=== PATIENT | female | born 1945 | race Caucasian/White ===

== ENCOUNTER → 2020-05-10 13:27 | Outpatient (CLI) | payer MEDICARE, SELFPAY ==
--- NOTE | ~2020-05-10 | XR_ITS ---
EXAMINATION: XR lumbar spine 2-3V EXAM DATE: 05/10/2020 13:47 INDICATION: Right-sided low back pain for 2 years. TECHNIQUE: Lumber spine frontal, lateral, lateral L5-S1 projections for interpretation. There is no prior study for comparison. FINDINGS: There is mild to moderate lumbar dextroscoliosis. Bones appear osteopenic. Probably modera te disc disease L5-S1 and mild to moderate at the other lumbar levels. Sacrum, sacroiliac joints, sac ral arcuate lines are intact. There is aortic arteriosclerosis. There is mild to moderate lumbar face t arthropathy. Paraspinal soft tissue is unremarkable. There are no osteoblastic or osteolytic lesion s identified. IMPRESSION: 1. Mild to moderate thoracic dextroscoliosis and spondylosis. Reviewed, dictated and finalized at location A.
== END ==
PROVIDERS: PCP Family Medicine; Visit Provider Family Medicine
DX: M54.5 Low back pain (principal); M47.814 Spondylosis without myelopathy or radiculopathy, thoracic region; M41.9 Scoliosis, unspecified
CPT/HCPCS: 72100

== ENCOUNTER → 2020-06-17 13:15 | Outpatient (CLI) | payer MEDICARE, SELFPAY ==
--- NOTE | ~2020-06-17 | MM_ITS ---
EXAMINATION: MM screening alpesh BI w martir HISTORY: Screening mammogram TECHNIQUE: Craniocaudal and mediolateral oblique 3-D tomosynthesis images were obtained and synthetic 2-D images were generated. CAD analysis was submitted and interpreted. COMPARISON: 03/31/2019, 03/01/2017 bilateral digital screening mammogram examinations BREAST PARENCHYMAL COMPOSITION: The breasts are heterogeneously dense, which may obscure small masses . FINDINGS: Stable probable 12 x 20 mm lipoma of upper outer left breast. There is no evidence of suspi cious mass, calcification, or architectural distortion to suggest malignancy in either breast. There has been no suspicious interval change. IMPRESSION: 1. No mammographic evidence of malignancy. 2. Recommend routine screening mammography in one year. BI-RADS Category 2: Benign finding(s). Reviewed, dictated and finalized at location A.
== END ==
PROVIDERS: PCP Family Medicine; Visit Provider Family Medicine
DX: Z12.31 Encounter for screening mammogram for malignant neoplasm of breast (principal)
CPT/HCPCS: 77063; 77067

== ENCOUNTER 2020-11-01 13:22 | Outpatient (CLI) | payer MEDICARE, OTHER, SELFPAY ==
--- NOTE | ~2020-11-01 | XR_ITS ---
EXAMINATION: XR ribs LT 2V w CXR 2V INDICATION: Contusion of the left anterior wall of the thorax, initial encounter TECHNIQUE: PA and lateral views of the chest and 3 views of the left ribs were obtained. COMPARISON: None. FINDINGS: There is symmetric scarring in the lung apices. The lungs are free of acute opacities. The cardiomediastinal silhouette is normal. There is no pleural effusion or pneumothorax. Moderate thorac ic spondylosis is noted. The bones are osteopenic which limits sensitivity for fracture. There is a q uestionable nondisplaced fracture at the anterolateral aspect of the left seventh rib.. IMPRESSION: 1. Possible nondisplaced left seventh rib fracture. 2. No acute cardiopulmonary abnormality. Reviewed, dictated and finalized at location A. ID SUPERINTENDENT
== END 2020-11-01 13:23 | disposition home or self-care (01) ==
PROVIDERS: PCP Family Medicine; Visit Provider Nurse Practitioner Family
DX: R07.81 Pleurodynia (principal); S20.212A Contusion of left front wall of thorax, initial encounter; X58.XXXA Exposure to other specified factors, initial encounter
CPT/HCPCS: 71046; 71100

== ENCOUNTER 2021-06-03 16:07 | Outpatient (CLI) | payer MEDICARE, SELFPAY ==
--- NOTE | ~2021-06-03 | CT_ITS ---
EXAMINATION:CT lung screening DATE: 06/03/2021 16:34 INDICATION: Personal history of tobacco dependence. 45 pack year history. TECHNIQUE: Computed tomography (CT) of the chest was performed without intravenous contrast. Automate d exposure control and iterative reconstruction technique were employed. The dose-length product (DLP ) was 60.29 mGy-cm. COMPARISON: None. FINDINGS: There is mild emphysema. There is mild scarring at the lung apices. There is a 5 mm nodule at right major fissure. No pleural effusion. The heart size is normal. There are coronary artery calc ifications. No pericardial effusion. There is moderate thoracic spondylosis. There is mild chronic he ight loss of multiple vertebral bodies. IMPRESSION: 1. Lung-RADS category 2: Benign appearance or behavior. Continue annual screening with noncontrast lo w-dose chest CT in 12 months. Reviewed, dictated and finalized at location A. IMPRESSION: 1. Lung-RADS category 2: Benign appearance or behavior. Continue annual screeni ng with noncontrast low-dose chest CT in 12 months.
== END 2021-06-03 16:08 | disposition home or self-care (01) ==
LOC: ANHIMG 16:17
PROVIDERS: PCP Family Medicine; Visit Provider Family Medicine
DX: F17.210 Nicotine dependence, cigarettes, uncomplicated (principal)
CPT/HCPCS: 71271

== ENCOUNTER → 2021-09-03 01:50 | Outpatient (CLI) | payer MEDICARE, SELFPAY ==
[2021-09-03 13:56] LABS: Influenza Control Positive
[2021-09-03 22:40] LABS: SARS-CoV-2 RNA PCR Positive
== END ==
PROVIDERS: PCP Family Medicine; Visit Provider Physician Assistant
DX: R05.9 Cough, unspecified (principal); R68.89 Other general symptoms and signs; U07.1 COVID-19
CPT/HCPCS: 87804; C9803; U0003; U0005

== ENCOUNTER → 2021-11-02 12:26 | Outpatient (CLI) | payer MEDICARE, SELFPAY ==
--- NOTE | ~2021-11-02 | MM_ITS ---
EXAMINATION: MM screening alpesh BI w martir HISTORY: Screening TECHNIQUE: Craniocaudal and mediolateral oblique 3-D tomosynthesis images were obtained and synthetic 2-D images were generated. CAD analysis was submitted and interpreted. COMPARISON: Comparison to multiple prior studies sequentially, with oldest reviewed study dated 06/28. BREAST PARENCHYMAL COMPOSITION: The breasts are heterogeneously dense, which may obscure small masses . FINDINGS: There is no evidence of suspicious mass, calcification, or architectural distortion to sugg est malignancy in either breast. There has been no suspicious interval change. IMPRESSION: 1. No mammographic evidence of malignancy. 2. Recommend routine screening mammography in one year. BI-RADS Category 1: Negative Reviewed, dictated and finalized at location A. MAKER
== END ==
PROVIDERS: PCP Family Medicine; Visit Provider Family Medicine
DX: Z12.31 Encounter for screening mammogram for malignant neoplasm of breast (principal)
CPT/HCPCS: 77063; 77067

== ENCOUNTER → 2022-06-28 13:38 | Outpatient (CLI) | payer MEDICARE, OTHER, SELFPAY ==
--- NOTE | ~2022-06-28 | XR_ITS ---
XR shoulder RT min 2V DATE: 06/28/2022 13:53 INDICATION: Anterior shoulder pain for 2 months. No injury. TECHNIQUE: 4 views COMPARISON: None FINDINGS: There is diffuse osteopenia. No fracture or dislocation, periosteal reaction or bone destru ction. No abnormal soft tissue calcification of the right shoulder. Normal alignment at the acromiocl avicular and glenohumeral joints. IMPRESSION: Osteopenia; otherwise negative Reviewed, dictated and finalized at location A.
== END ==
PROVIDERS: PCP Family Medicine; Visit Provider Family Medicine
DX: M25.511 Pain in right shoulder (principal); M85.811 Other specified disorders of bone density and structure, right shoulder
CPT/HCPCS: 73030

== ENCOUNTER 2022-06-29 13:52 | Outpatient (CLI) | payer MEDICARE, SELFPAY ==
--- NOTE | ~2022-06-29 | CT_ITS ---
EXAMINATION: CT lung screening DATE: 06/29/2022 14:24 INDICATION: CT lung screening. Personal history of prior tobacco dependence. 40 pack-year history. Qu it smoking one year ago. TECHNIQUE: Computed tomography (CT) of the chest was performed without intravenous contrast. Automate d exposure control and iterative reconstruction technique were employed. Exam dose: 60.57 mGy-cm tot al exam DLP. COMPARISON: 06/03/2021 CT lung screening FINDINGS: Stable mild bilateral apical and basilar scarring since 06/03/2021. Mild emphysematous changes of the lungs. No pulmonary infiltrate or consolidation or pulmonary mass lesion. Thoracic aortic and great vessel and coronary artery calcifications. No hilar or mediastinal mass les ion or lymphadenopathy. Normal heart size. No pericardial or pleural effusion. History of the deep ve ins of the region of the chest. No suspicious osteolytic or osteoblastic lesions. IMPRESSION: Lung RADS category 2: Benign appearance. Continue annual screening noncontrast low-dose chest CT in 12 months Reviewed, dictated and finalized at Location A. Reviewed, dictated and finalized at location A.
== END 2022-06-29 13:53 | disposition home or self-care (01) ==
PROVIDERS: PCP Family Medicine; Visit Provider Family Medicine
DX: Z12.2 Encounter for screening for malignant neoplasm of respiratory organs (principal); Z87.891 Personal history of nicotine dependence
CPT/HCPCS: 71271

== ENCOUNTER 2023-01-10 15:10 | Outpatient (CLI) | payer MEDICARE, SELFPAY ==
--- NOTE | ~2023-01-10 | XR_ITS ---
XR knee RT min 4V 01/10/2023 15:32 Indication: Right knee pain Procedure: 4 views right knee Comparison: No prior studies for comparison. Findings: Mild osteoarthritis of the right knee. No fracture, subluxation or dislocation. No signific ant joint effusion. No foreign bodies. Osteopenia. Impression: 1: Mild osteoarthritis of the right knee. Reviewed, dictated and finalized at location B. Impression: 1: Mild osteoarthritis of the right knee.
== END 2023-01-10 15:11 | disposition home or self-care (01) ==
LOC: ANHIMG 15:13
PROVIDERS: PCP Family Medicine; Visit Provider Physician Assistant
DX: M17.11 Unilateral primary osteoarthritis, right knee (principal)
CPT/HCPCS: 73564

== ENCOUNTER 2023-02-07 14:24 | Outpatient (CLI) | payer MEDICARE, SELFPAY ==
--- NOTE | ~2023-02-07 | MR_ITS ---
EXAMINATION: MR knee RT wo con DATE: 02/08/2023 09:00 INDICATION: right knee trauma, negative xrays, r/o occult fx TECHNIQUE: Magnetic resonance imaging (MRI) of the right knee was performed without intravenous contr ast. Sequences included axial PD-weighted FS FSE, coronal PD-weighted FSE and PD-weighted FS FSE, sag ittal PD-weighted FSE, and sagittal T2-weighted FS FSE. COMPARISON: X-ray right knee 01/10/2023. FINDINGS: Medial compartment: Intact meniscus. Moderate diffuse cartilage thinning. Mild osteophytosis. Lateral compartment: Fraying of the meniscal apex. Moderate diffuse cartilage thinning. Mild osteophytosis. Patellofemoral compartment: Cartilage loss along the median ridge and medial facet. Undermining/shearing of cartilage on the late ral facet. Small subchondral cysts. Mild osteophytosis. Ligaments and tendons: Signal abnormality superficial and deep to the MCL tendon, with mild signal abnormality of the tendon proximally. The ACL, PCL, and LCL are intact. Remaining flexor and extensor tendons are intact. Fluid: No significant fluid collection. Osseous/other: Marrow edema in the tibial plateau. Linear low signal T1 abnormality extending across the marrow spac e of the tibial plateau, most notably in the medial tibial plateau, with associated edema signal. IMPRESSION: 1. Occult nondisplaced microtrabecular fracture of the tibial plateau, most evident within the medial plateau. 2. Mild partial thickness MCL tear. 3. Moderate tricompartmental osteoarthritis. Reviewed, dictated and finalized at location K. IMPRESSION: 1. Occult nondisplaced microtrabecular fracture of the tibial plateau, most irma dent within the medial plateau. 2. Mild partial thickness MCL tear. 3. Moderate tricompartmental osteoarthritis.
== END 2023-02-07 14:25 | disposition home or self-care (01) ==
LOC: ANHIMG 18:13
PROVIDERS: PCP Family Medicine; Visit Provider Physician Assistant
DX: S89.91XA Unspecified injury of right lower leg, initial encounter (principal); X58.XXXA Exposure to other specified factors, initial encounter; M17.11 Unilateral primary osteoarthritis, right knee
CPT/HCPCS: 73721

== ENCOUNTER 2024-01-31 13:55 | Outpatient (CLI) | payer MEDICARE, SELFPAY ==
--- NOTE | ~2024-01-31 | XR_ITS ---
XR shoulder RT min 2V Ordering provider: Ravin Guillen MD History: . M25.511 - Pain in right shoulder, chronic . Comparison: June 28, 2022 FINDINGS: BONES: No acute fracture or dislocation. JOINT SPACES: The acromioclavicular joint is normal. The glenohumeral joint is normal. inferior spurr ing seen in the humerus and glenoid suggestive of angina osteoarthritic changes. SOFT TISSUES: Normal. IMPRESSION: No acute osseous abnormality right shoulder. Reviewed, dictated and finalized at location A.
--- NOTE | ~2024-01-31 | XR_ITS ---
XR shoulder LT min 2V Ordering provider: Ravin Guillen MD History: . M25.511 - Pain in right shoulder, chronic . Comparison: None. FINDINGS: BONES: No acute fracture or dislocation. JOINT SPACES: The acromioclavicular joint is normal. The glenohumeral joint is normal. Mild osteoarth ritic changes seen with spurring seen in the humerus inferiorly. SOFT TISSUES: Normal. IMPRESSION: No acute osseous abnormality left shoulder. Consider MRI of the shoulder if there is concern for soft tissue internal derangement. Reviewed, dictated and finalized at location A. IMPRESSION: No acute osseous abnormality left shoulder. Consider MRI of the shoulder if there is concern for soft tissue internal deran tsering.
--- NOTE | ~2024-01-31 | CT_ITS ---
CT Scan of the Chest without Contrast: Clinical Indication: Lung cancer screening, nicotine dependence. Technique: Contiguous sections were acquired throughout the chest without intravenous contrast. Dose reduction technique was used on this scan by utilizing automated exposure control and iterative recon struction technique. The dose-length product (DLP) was 59.72 mGy-cm. Comparison: 06/29/2022 Findings: There is no evidence of any significant mediastinal, hilar or axillary lymphadenopathy. The mediastin al soft tissues appear normal. There is no evidence of pleural or pericardial effusion. Stable biapical scarring. The lungs are otherwise clear. No pulmonary nodules or infiltrates are not ed. Images through the upper abdomen reveal no abnormalities. Impression: Lung RADS 2: Benign appearance. 12 month follow-up screening CT advised. Reviewed, dictated and finalized at [facility]. Impression: Lung RADS 2: Benign appearance. 12 month follow-up screening CT advised.
--- NOTE | ~2024-01-31 | XR_ITS ---
3 VIEWS LUMBAR SPINE Ordering provider: Ravin Guillen MD History: . M54.50 - Low back pain, unspecified, chronic . Comparison: May 10, 2020 FINDINGS: VERTEBRAL BODIES:Dextroscoliosis. Degenerative spine. Destructive changes with loss of volume of L1 o n L2. . DISK SPACES: Narrowing of the disc T12-L1, L1-L2, L2-L3 and L5-S1. Multilevel facet joint disease. SOFT TISSUES: Normal. Sacroiliac joints are normal. IMPRESSION: Loss of volume of L1-L2 with possible destructive changes involving L2. MRI evaluation advised. Multilevel degenerative disc disease. Reviewed, dictated and finalized at location A. IMPRESSION: Loss of volume of L1-L2 with possible destructive changes involving L2. MRI cordelia luation advised. Multilevel degenerative disc disease.
== END 2024-01-31 13:56 | disposition home or self-care (01) ==
PROVIDERS: PCP Family Medicine; Visit Provider Family Medicine
DX: M25.512 Pain in left shoulder (principal); M25.511 Pain in right shoulder; G89.29 Other chronic pain; M54.50 Low back pain, unspecified; Z12.2 Encounter for screening for malignant neoplasm of respiratory organs; Z87.891 Personal history of nicotine dependence; M51.36 Other intervertebral disc degeneration, lumbar region
CPT/HCPCS: 71271; 72100; 73030

== ENCOUNTER 2024-02-25 11:01 | Outpatient (CLI) | payer MEDICARE, SELFPAY ==
--- NOTE | ~2024-02-25 | MR_ITS ---
EXAMINATION: MR lumbar spine wo con DATE: 02/25/2024 12:23 INDICATION: Disorder of bone and low back pain TECHNIQUE: Magnetic resonance imaging (MRI) of the lumbar spine was performed without intravenous con trast. Sequences included sagittal T2-weighted FSE, sagittal T2-weighted FS FSE, sagittal T1-weighted FSE, and axial T2-weighted FSE. COMPARISON: None FINDINGS: 20 degrees upper lumbar dextroscoliosis. 2 mm retrolisthesis L1 on L2, 2-3 mm retrolisthesis L2 on L3 and 2 mm retrolisthesis L3 on L4. There is severe left-sided disc height loss with associated degene rative endplate remodeling at L1-L2 and L2-L3 with intervening mild left-sided vertebral body height loss at L2. And mild left anterior vertebral body height loss at L1. Additional moderate to severe ri ght-sided disc height loss with right-sided degenerative endplate changes at L5-S1. Moderate disc hei ght loss at T11-T12. Mild right-sided predominant disc height loss at T12-L1, L3-L4 and L4-L5 with Th ere are few small Schmorl's nodes in the lumbar and lower thoracic spine. T2 hyperintense fibrovascul ar degenerative endplate changes within multiple endplates in the lumbar and lower thoracic spine. Ma rrow signal is otherwise normal. Marrow signal is otherwise normal. The conus medullaris terminates a t L2-L3. There is normal signal in the caudal spinal cord. Paravertebral soft tissues are unremarkabl e. The following disc levels are specifically discussed: T12-L1: Disc is bulging. There is mild right and mild to moderate left facet joint osteoarthritis. Th ere is no neural foraminal stenosis. There is mild central canal stenosis. L1-L2: Disc is bulging with annular fissure and superimposed central to left paracentral disc extrusi on with disc material extending up to 5 mm caudal to the level of the superior endplate of L2. There is mild bilateral facet joint osteoarthritis. There is mild bilateral neural foraminal stenosis. Ther e is mild to moderate left-sided predominant central canal stenosis with narrowing of the left latera l recess. L2-L3: Disc is bulging. There is moderate bilateral facet joint osteoarthritis. There is moderate sal ateral neural foraminal stenosis. There is mild central canal stenosis. L3-L4: Disc is bulging with annular fissure and broad-based disc extrusion which extends from foramin al zone to foraminal zone with disc material extending up to 3 mm caudal to the level of the superior endplate of L4. There is hypertrophy of the ligamentum flavum. There is mild right and moderate left facet joint osteoarthritis. There is moderate bilateral neural foraminal stenosis. There is moderate to severe central canal stenosis with minimal CSF signal surrounding the centrally clustered nerve r oots.. L4-L5: Disc is bulging. There is severe bilateral facet joint osteoarthritis. There is moderate right and mild to moderate left neural foraminal stenosis. There is mild central canal stenosis with narro wing of the left and right lateral recesses with narrowing of the left and right lateral recesses. L5-S1: Disc is bulging with annular fissure. There is severe bilateral facet joint osteoarthritis. Th ere is moderate right and mild left neural foraminal stenosis. There is mild central canal stenosis w ith narrowing of the left and right lateral recesses. IMPRESSION: 1. 20 degrees lumbar dextroscoliosis with severe spondylosis. Reviewed, dictated and finalized at location B.
== END 2024-02-25 11:02 ==
LOC: GOSHIMG 11:03
PROVIDERS: PCP Family Medicine; Visit Provider Family Medicine
DX: M41.86 Other forms of scoliosis, lumbar region (principal); M43.06 Spondylolysis, lumbar region
CPT/HCPCS: 72148